=== PATIENT | female | born 1965 | race African-American/Black ===

== ENCOUNTER 2024-01-14 13:00 | Emergency (ER) | payer MEDICAID, MEDICARE ==
[~2024-01-14] VITALS: Ht 160 cm; Wt 98.0 kg
[2024-01-14 13:04] VITALS: O2SAT 97
[2024-01-14 13:38] VITALS: TEMP 98.5
[2024-01-14] MEDS: ACETAMINOPHEN 325MG TABLET PO ONE (13:38)
[2024-01-14] MEDS ORDERED: TRAM50TA3 MT (15:21)
[2024-01-14] MEDS ORDERED: IBUP-1523 MT (15:21)
[2024-01-14] MEDS ORDERED: TOPUD MT (15:21)
[2024-01-14] MEDS: IBUPROFEN 800MG TABLET PO ONE (15:23)
[2024-01-14] MEDS: TRAMADOL 50MG TABLET PO ONE (15:23)
[2024-01-14 16:56] VITALS: BP 134/80; PULSE 84; RESP 16; O2SAT 99
== END 2024-01-14 16:56 | disposition home or self-care (01) ==
LOC: ER 13:00
DX: S86.912A Strain of unspecified muscle(s) and tendon(s) at lower leg level, left leg, initial encounter (principal); E11.9 Type 2 diabetes mellitus without complications; Z88.5 Allergy status to narcotic agent; W18.30XA Fall on same level, unspecified, initial encounter; Y93.89 Activity, other specified; Y92.89 Other specified places as the place of occurrence of the external cause; Y99.8 Other external cause status
CPT/HCPCS: 73562; 99284; Z7610; L1830